=== PATIENT | male | born 1980 | race Caucasian/White ===

== ENCOUNTER → 2016-12-14 | Outpatient (CLI) | payer OTHER ==
[~2016-12-14] MED LIST: ISOVUE-370 76% 100ML VIAL (Q9967) As Ordered ONE
--- NOTE | 2016-12-15 03:41 | REP ---
Clinical: Pleuritic chest pain. Technique: Axial contrast enhanced images from the thoracic inlet to the upper abdomen using 100 ml Isovue 370 intravenous contrast material with coronal and sagittal re-formations. Comparison: None. Findings: Linear bibasilar and right middle lobe fibroatelectatic changes are appreciated which may reflect acute atelectasis along with mild hilar adenopathy (right greater than left). There is a 7 mm soft tissue nodule inseparable from the right major fissure (image 57). No further areas of consolidation, nodule or mass lesion appreciated. No pleural effusion/reaction. No pneumothorax. Tracheobronchial tree is patent. Thoracic aorta and heart/pericardium appear normal. Limited upper abdomen demonstrates normal bilateral adrenal glands. Impression: 1. Bibasilar and right middle lobe atelectasis with mild hilar adenopathy. 2. A 7 mm noncalcified soft tissue nodule inseparable from the right major fissure. 3. Follow-up examination at 3-6 months may be warranted to evaluate for resolution and reevaluation of pulmonary nodule. Signed by Stan Mckinley MD 12/15/2016 03:32 A
== END ==
LOC: M RAD 18:01
PROVIDERS: ATTEND Physician Assistant
DX: R07.81 Pleurodynia (principal)

== ENCOUNTER 2023-10-09 14:58 | Emergency (ER) | payer OTHER ==
[~2023-10-09] VITALS: Ht 182.9 cm; Wt 97.7 kg
[2023-10-09] MEDS ORDERED: MELO15TA28 (15:11)
[2023-10-09] MEDS ORDERED: SILD100T (15:11)
[2023-10-09] MEDS ORDERED: GABA-282 (15:11)
[2023-10-09] MEDS ORDERED: ATOR40TA75 (15:11)
[2023-10-09] MEDS ORDERED: CETI-24 (15:11)
[2023-10-09 16:18] LABS: BASO % 0.1 % (0.0-1.0); EOS # 0.1 10^3/uL (0.0-0.5); EOS % 0.8 % (0.0-3.0); HEMATOCRIT 41.2 % (42.0-52.0); HEMOGLOBIN 14.4 g/dl (13.5-17.5); LYMPH # 2.1 10^3/uL (1.5-5.0); MEAN CORPUSCULAR HEMOGLOBIN 30.6 pg (27.0-33.0); MEAN CORPUSCULAR VOLUME 87.7 fl (80.0-96.0); MONO # 0.7 10^3/uL (0.0-0.8); MONO % 5.5 % (2.0-8.0); NEUTROPHILS # 9.2 10^3/uL (1.5-8.5); PLATELET COUNT, AUTOMATED 205 10^3/uL (150-450); WHITE BLOOD COUNT 12.1 10^3/uL (4.0-10.0)
[2023-10-09 16:46] LABS: BLOOD UREA NITROGEN 20 MG/DL (9-23); CALCIUM LEVEL 8.5 MG/DL (8.5-10.1); CARBON DIOXIDE LEVEL 26 MMOL/L (20-31); CHLORIDE LEVEL 101 MMOL/L (98-107); CREATININE FOR GFR 0.96 MG/DL (0.70-1.30); GLOMERULAR FILTRATION RATE > 60.0 (>60); GLUCOSE, FASTING 99 MG/DL (60-100); SODIUM LEVEL 134 MMOL/L (136-145)
[2023-10-09 17:42] LABS: AMPHETAMINES LEVEL URINE NEGATIVE (NEGATIVE); CANNABINOIDS URINE NEGATIVE (NEGATIVE); PHENCYCLIDINE URINE NEGATIVE (NEGATIVE)
[2023-10-09 17:43] LABS: BARBITURATES URINE NEGATIVE (NEGATIVE); BENZODIAZEPINES URINE NEGATIVE (NEGATIVE); COCAINE METABOLITE URINE NEGATIVE (NEGATIVE); METHADONE URINE NEGATIVE (NEGATIVE); OPIATES URINE NEGATIVE (NEGATIVE)
[2023-10-09] MEDS: levETIRAcetam INJection 750 MG in D5W 100 ML IV ONE (18:07)
[2023-10-09] MEDS ORDERED: KEPP1TAB2 PO (18:11)
[2023-10-09 19:14] VITALS: BP 113/65; TEMP 97.6; O2SAT 97
== END 2023-10-09 19:14 | disposition home or self-care (01) ==
LOC: EDBD 14:58 → M ED 14:58
DX: G40.909 Epilepsy, unspecified, not intractable, without status epilepticus (principal); F17.290 Nicotine dependence, other tobacco product, uncomplicated; Z88.8 Allergy status to other drugs, medicaments and biological substances; Z79.899 Other long term (current) drug therapy
CPT/HCPCS: 70450; 80048; 80307; 84484; 85025; 93005; 93041; 96365; 99285; J1953

== ENCOUNTER → 2024-04-10 | Outpatient (CLI) | payer OTHER ==
[~2024-04-10] MED LIST changes: +ATOR40TA75; +CETI-24; +GABA-282; -ISOVUE-370 76% 100ML VIAL (Q9967) As Ordered ONE; +KEPP1TAB2 PO; +MELO15TA28; +SILD100T
[2024-04-10 15:31] LABS: BASO % 0.2 % (0.0-1.0); EOS # 0.1 10^3/uL (0.0-0.5); EOS % 1.4 % (0.0-3.0); HEMATOCRIT 44.9 % (42.0-52.0); HEMOGLOBIN 14.7 g/dl (13.5-17.5); LYMPH # 2.8 10^3/uL (1.5-5.0); LYMPH % 30.3 % (24.0-44.0); MEAN CORPUSCULAR HEMOGLOBIN 30.2 pg (27.0-33.0); MEAN CORPUSCULAR HGB CONC 32.7 g/dl (32.0-36.5); MEAN CORPUSCULAR VOLUME 92.2 fl (80.0-96.0); MONO # 0.5 10^3/uL (0.0-0.8); MONO % 5.7 % (2.0-8.0); NEUTROPHILS # 5.8 10^3/uL (1.5-8.5); NEUTROPHILS % 61.9 % (36.0-66.0); PLATELET COUNT, AUTOMATED 196 10^3/uL (150-450); RED BLOOD COUNT 4.87 10^6/uL (4.30-6.10); WHITE BLOOD COUNT 9.4 10^3/uL (4.0-10.0)
[2024-04-10 16:02] LABS: ALBUMIN 4.1 G/DL (3.2-5.2); ALKALINE PHOSPHATASE 72 U/L (46-116); ALT/SGPT 38 U/L (7.0-40); AST/SGOT 25 U/L (<34); BILIRUBIN,TOTAL 0.4 MG/DL (0.3-1.2); BLOOD UREA NITROGEN 16 MG/DL (9-23); CALCIUM LEVEL 8.9 MG/DL (8.5-10.1); CARBON DIOXIDE LEVEL 31 MMOL/L (20-31); CHLORIDE LEVEL 104 MMOL/L (98-107); CREATININE FOR GFR 0.83 MG/DL (0.70-1.30); GLOMERULAR FILTRATION RATE > 60.0 (>60); GLUCOSE, FASTING 84 MG/DL (60-100); POTASSIUM SERUM 4.5 MMOL/L (3.5-5.1); SODIUM LEVEL 137 MMOL/L (136-145); TOTAL PROTEIN 6.6 G/DL (5.7-8.2)
== END ==
LOC: M PLALAB 12:20
PROVIDERS: ATTEND Psychiatry & Neurology Neurology
DX: R55 Syncope and collapse (principal); R56.9 Unspecified convulsions

== ENCOUNTER 2025-05-16 16:30 | Emergency (ER) | payer OTHER ==
[~2025-05-16] VITALS: Ht 185.4 cm; Wt 104.8 kg
[~2025-05-16 16:30] MED LIST changes: +GABA-1172; -GABA-282
[2025-05-16] MEDS: NS (Normal Saline) 0.9% 1,000 ML IV ONE (16:50)
[2025-05-16 17:33] LABS: CALCIUM LEVEL 9.1 MG/DL (8.5-10.1); CARBON DIOXIDE LEVEL 20.0 MMOL/L (20-31); CHLORIDE LEVEL 102.0 MMOL/L (98-107); CREATININE FOR GFR 1.14 MG/DL (0.70-1.30); GLOMERULAR FILTRATION RATE 80.3 (>60); POTASSIUM SERUM 4.4 MMOL/L (3.5-5.1); SODIUM LEVEL 140.0 MMOL/L (136-145)
[2025-05-16] MEDS ORDERED: ISOVUE-370 76% 100 ML VIAL As Ordered ONE (18:19)
[2025-05-16 19:30] VITALS: BP 116/58; TEMP 97.7; O2SAT 97
[2025-05-16 20:02] LABS: AMPHETAMINES LEVEL URINE NEGATIVE (NEGATIVE); BARBITURATES URINE NEGATIVE (NEGATIVE); BENZODIAZEPINES URINE NEGATIVE (NEGATIVE); COCAINE METABOLITE URINE NEGATIVE (NEGATIVE); METHADONE URINE NEGATIVE (NEGATIVE); OPIATES URINE NEGATIVE (NEGATIVE); PHENCYCLIDINE URINE NEGATIVE (NEGATIVE)
[2025-05-16 20:03] LABS: CANNABINOIDS URINE POSITIVE (NEGATIVE)
== END 2025-05-16 19:50 | disposition home or self-care (01) ==
LOC: M ED 16:30 → EDBD 16:30 → M ED 19:50
DX: R56.9 Unspecified convulsions (principal); S00.81XA Abrasion of other part of head, initial encounter; S01.512A Laceration without foreign body of oral cavity, initial encounter; X58.XXXA Exposure to other specified factors, initial encounter; Y92.9 Unspecified place or not applicable; Y93.9 Activity, unspecified; Y99.9 Unspecified external cause status; S22.040A Wedge compression fracture of fourth thoracic vertebra, initial encounter for closed fracture; S22.050A Wedge compression fracture of T5-T6 vertebra, initial encounter for closed fracture; S22.060A Wedge compression fracture of T7-T8 vertebra, initial encounter for closed fracture; S22.070A Wedge compression fracture of T9-T10 vertebra, initial encounter for closed fracture; J84.10 Pulmonary fibrosis, unspecified
CPT/HCPCS: 70450; 71275; 72125; 80048; 80177; 80307; 93005; 99284; Q9967